=== PATIENT | male | born 1975 | race Caucasian/White ===

== ENCOUNTER 2023-06-14 10:29 | Emergency (ER) | payer SELFPAY ==
[2023-06-14 10:32] VITALS: BP 108/70
[2023-06-14 11:00] VITALS: BP 105/67
[2023-06-14 11:30] LABS: % Basophils 0.6 % (0-2); % Eosinophils 2.4 % (0-6); % Immature Granulocytes 0.1 % (0-0.5); % Lymphocytes 24.3 % (20.5-51.1); % Monocytes 7.2 % (1.7-9.3); % Neutrophils 65.4 % (42.2-75.2); Absolute Basophils 0.1 10^3/uL (0-0.2); Absolute Eosinophils 0.2 10^3/uL (0-0.7); Absolute Monocytes 0.6 10^3/uL (0.1-0.6); Absolute Neutrophils 5.4 10^3/uL (1.4-6.5); Hematocrit 43.1 % (39.0-52.0); Hemoglobin 15.6 g/dL (13.0-18.0); Mean Corp Hgb Conc. 36.2 g/dL (33.0-37.0); Mean Corpuscular Hgb 31.4 pg (27.0-31.0); Mean Corpuscular Volume 86.7 fL (80.0-94.0); Mean Platelet Volume 8.8 fL (7.4-10.4); Nucleated Red Blood Cells % 0 % (-); Platelet Count 258 10^3/uL (130-400); Red Blood Cell Count 4.97 10^6/uL (4.70-6.10); Red Cell Dist. Width 12.9 % (11.5-14.5); White Blood Cell Count 8.2 10^3/uL (4.8-10.8)
[2023-06-14 11:37] LABS: ALT (SGPT) 23 U/L (0-50); AST (SGOT) 25 U/L (17-59); Albumin 4.2 g/dl (3.5-5.0); Alkaline Phosphatase 64 U/L (38-126); Blood Urea Nitrogen 19 mg/dl (9-20); Calcium 8.8 mg/dl (8.4-10.2); Carbon Dioxide 25 mmol/L (22-30); Chloride 104 mmol/L (98-107); Estimated Creatinine Clearance 79 ml/min; Glucose 183 mg/dl (70-99); Potassium 3.9 mmol/L (3.5-5.1); Sodium 135 mmol/L (135-145); Total Bilirubin 0.5 mg/dl (0.2-1.3); Total Protein 6.8 g/dl (6.3-8.2); eGFR > 60.00
[2023-06-14 12:00] VITALS: BP 106/71
[2023-06-14 12:28] LABS: Glucose - Point of Care 164 mg/dl (70-99)
--- NOTE | 2023-06-14 12:33 | ED.GENMED ---
History of Present Illness
General
Chief Complaint: Fainting/Passed Out
Source: patient
Exam Limitations: none
Time Seen by Provider: 06/14/23 10:58
Travel History
Have you had any contact with someone who has COVID-19?: No
Do you have any symptoms of coronavirus? Fever > 100 degrees, chills, cough, shortness of breath, sore throat, loss of taste or smell, muscle aches, or headache?: No
History of Present Illness
History of Present Illness:
48-year-old male who presents after he passed out. The patient states he was at work and was just about to leave for job and felt lightheaded. He states he then subsequently was on the ground. He tried to get up toward the van and passed out
again. He now feels much better. He states yesterday that he had a little bit of a GI upset he thought him and his girlfriend had a GI bug. He did not vomit but had some loose stools. He does admit he did not drink much fluid yesterday. He did
feel better by 11 AM yesterday. Today he felt normal. He states he had a Gatorade a little bit of water and some donuts. He denies any abdominal cramping or pain. He denies any shortness of breath or chest pain. No palpitations. He does admit
that his mom used to pass out when she would see blood. He is not a smoker. No alcohol use
Past History
Past History
ED Past Surgical History: Orthopedic
Social History
Tobacco: Non-smoker
Alcohol: None
Drug: Marijuana (Occasional)
Phy Exam
Physical Exam
Physical Exam:
CONSTITUTIONAL Patient alert and oriented to person, place and time. Well-appearing. Vital signs reviewed.
HEAD atraumatic, normocephalic.
EYES eyelids normal to inspection, Pupils equally round and reactive to light, Extraocular muscles intact, Conjunctiva normal, Sclera normal.
NECK normal range of motion, Trachea midline, no jugular venous distention.
RESPIRATORY CHEST No respiratory distress noted, Chest expansion equal, Bilateral breath sounds clear.
CARDIOVASCULAR regular rate and rhythm, Heart sounds normal.
ABDOMEN abdomen nontender, Bowel sounds normal. No distention.
BACK normal inspection, no obvious deformities
UPPER EXTREMITY range of motion normal, Motor strength normal, no cyanosis, no edema.
LOWER EXTREMITY range of motion normal, Motor strength normal, no cyanosis, no edema.
NEURO Speech normal, No focal motor deficits, Maria Esther coma scale 15, Memory normal, Cranial Nerves intact to screening exam.
SKIN skin warm, dry, and normal in color.
PSYCHIATRIC patient oriented to person place and time, Normal affect.
Course
Orders/Labs/Results
Orders:
Orders
06/14/23 10:40
Electrocardiogram (*1) Urgent
Reason for Study: Syncope
06/14/23 10:41
EKG- Treatment ONCE
06/14/23 11:05
CMP [Comprehensive Metabolic Panel] Urgent
Complete Blood Count/With Diff Urgent
Abnormal Lab Results
06/14/23 06/14/23
11:05 12:27
MCH 31.4 H pg
(27.0-31.0)
Glucose 183 H mg/dl
(70-99)
POC Glucose 164 H mg/dl
(70-99)
06/14/23 11:05
06/14/23 11:05
Vital Signs
Initial and Last Documented VS:
Initial Vital Signs
Temp Pulse Resp BP Pulse Ox
97.8 F 60 16 108/70 99
06/14/23 10:32 06/14/23 10:32 06/14/23 10:32 06/14/23 10:32 06/14/23 10:32
Last Documented Vital Signs
Temp Pulse Resp BP Pulse Ox
97.8 F 60 16 108/70 99
06/14/23 10:32 06/14/23 10:32 06/14/23 10:32 06/14/23 10:32 06/14/23 10:32
MDM/Problems Addressed
MDM/Problems Addressed:
Syncope
*Pulse Oximetry
Patient hypoxic: no
*EKG
Interpreted by ED Provider?: Yes
Interpretation: abnormal
Rate: bradycardiac
Rhythm: sinus
[place]: normal axis
Interval: normal interval
QRS Pattern: normal QRS
Ischemia: no ischemia
*Ground Mixer Interpretation
Rate: bradycardiac
Interpretation: abnormal
Rhythm: sinus
*Critical Care Note
Total Time (30-74mins, 75-104mins- exclusive of procedures): Not Applicable
Data Reviewed
Source: patient
Further Testing Considered But Not Given:
Consider D-dimer but no risks, no hypoxia, no tachypnea, no tachycardia.
Patient Management
Escalation/DeEscalation of care consider admission/obs:
Patient appears quite well. Remained normal sinus rhythm while here on telemetry monitoring. EKG grossly unremarkable. Will repeat. Labs normal. Did have GI upset yesterday with poor fluid intake. Patient feels back to normal. Denies any
cardiac symptoms prior to the event. Does admit he was a little diaphoretic and question vasovagal event. I do feel he is safe for discharge and outpatient follow-up as he does not have any risks for ventricular dysrhythmia.
ED Attending Note
-
Portions of this chart may have been created with voice recognition software.� Occasional wrong word or��sound alike� substitutions may have occurred due to the inherent limitations of voice recognition software.
Discharge Plan
Departure
Referrals:
Supa Chiu MD [Family Provider] -
Interventions
Interventions:
*Risk Screen - Suicide Last Done: 06/14/23 10:32
*General Assessment Last Done: 06/14/23 10:32
*Neglect/Abuse Screening Last Done: 06/14/23 10:32
ED- Fall Risk Assessment Last Done: 06/14/23 12:20
*ED COVID-19 Vaccine History Last Done: 06/14/23 10:32
ED- Cardiac Assessment Last Done: 06/14/23 12:20
ED- Neurological Assessment Last Done: 06/14/23 12:20
Discharge Date and Time
Print Language: [place]
[2023-06-14 13:00] VITALS: BP 109/71
== END 2023-06-14 14:07 | disposition home or self-care (01) ==
LOC: EMR 10:29
PROVIDERS: EMERGENCY PHYSICIAN Emergency Medicine; FAMILY PHYSICIAN Family Medicine
DX: R55 Syncope and collapse (principal)
CPT/HCPCS: 99283; 80053; 82962; 85025; 93005